=== PATIENT | female | born 1965 | race Caucasian/White ===

== ENCOUNTER 2017-03-03 21:03 | Emergency (ER) | payer BC ==
[2017-03-03 21:58] VITALS: BP 113/70; PULSE 82; TEMP 97.9; BMI 23.9
[2017-03-03] MEDS ORDERED: DIPHTH,PERTUSS(ACELL),TET 0.5 ML DISP.SYRIN IM ONE (21:58)
--- NOTE | 2017-03-03 21:58 | PDOC ---
Rapid Medical Evaluation Chief Complaint: Bite Time Seen by Provider: 03/03/17 21:55 Medical Evaluation: 03/03/17 21:56 The patient presents with a chief complaint of: Dog bite, domesticated, her dog. UTD in vaccinations. I have performed a brief in-person evaluation of this patient. Pertinent physical exam findings: vss, Edema and multiple abrasions to the elft forearm. anterior puncture wound with surrounding edema. I have ordered the following: Boostrix. Xray left forearm. The patient will proceed to the ED for further evaluation. Discharge Disposition - Diagnosis Dog bite Qualifiers: Encounter type: initial encounter Qualified Code(s): W54.0XXA - Bitten by dog, initial encounter - Referrals - Patient Instructions - Post Discharge Activity
--- NOTE | 2017-03-03 22:50 | PDOC ---
History of Present Illness - General Chief Complaint: Bite Stated Complaint: DOG BITE Time Seen by Provider: 03/03/17 21:55 History Source: Patient Exam Limitations: No Limitations - History of Present Illness Initial Comments: 03/03/17 22:41 51-year-old female with no medical history presents to the emergency department complaining of a puncture wound and superficial abrasions to her left mid forearm. Patient states her fully rabies vaccinated dog was playing with her bird when it bit her forearm she was them. Patient states pain is described as 4/10 dull nonradiating intermittent discomfort which is exacerbated on touch and alleviated at rest. Patient denies fever, chills, nausea/vomiting, ext numbness or tingling sensation. Unknown last tetanus. NO KNOWN DRUG ALLERGIES. Timing/Duration: reports: just prior to arrival Past History - Past Medical History Allergies/Adverse Reactions: Allergies Allergy/AdvReac Type Severity Reaction Status Date / Time No Known Allergies Allergy Verified 03/03/17 21:58 Home Medications: Ambulatory Orders Levothyroxine [Synthroid -] 88 mcg PO DAILY 03/03/17 COPD: No - Suicide/Smoking/Psychosocial Hx Smoking History: Never smoked Have you smoked in the past 12 months: No Information on smoking cessation initiated: No Hx Alcohol Use: No Drug/Substance Use Hx: No Substance Use Type: None Review of Systems - Review of Systems Able to Perform ROS?: Yes Comments:: 03/03/17 22:50 CONSTITUTIONAL: Absent: fever, chills, diaphoresis, generalized weakness, malaise, loss of appetite HEENT: Absent: rhinorrhea, nasal congestion, throat pain, throat swelling, difficulty swallowing, mouth swelling, ear pain, eye pain, visual Changes CARDIOVASCULAR: Absent: chest pain, loss of consciousness, palpitations, irregular heart rate, peripheral edema RESPIRATORY: Absent: cough, shortness of breath, dyspnea with exertion, orthopnea, wheezing, stridor, hemoptysis GASTROINTESTINAL: Absent: abdominal pain, abdominal distension, nausea, vomiting, diarrhea, constipation, melena, hematochezia GENITOURINARY: Absent: dysuria, frequency, urgency, hesitancy, hematuria, flank pain, genital pain MUSCULOSKELETAL: Absent: myalgia, arthralgia, joint swelling SKIN: Absent: rash, itching, pallor HEMATOLOGIC/IMMUNOLOGIC: Absent: easy bleeding, easy bruising, lymphadenopathy, frequent infections ENDOCRINE: Absent: unexplained weight gain, unexplained weight loss, heat intolerance, cold intolerance NEUROLOGIC: Absent: headache, focal weakness or paresthesias, dizziness, unsteady gait, seizure, mental status changes, bladder or bowel incontinence PSYCHIATRIC: Absent: anxiety, depression, suicidal or homicidal ideation, hallucinations. Is the patient limited Georgian proficient: No *Physical Exam - Vital Signs Last Vital Signs Temp Pulse Resp BP Pulse Ox 97.9 F 82 18 113/70 100 03/03/17 21:55 03/03/17 21:55 03/03/17 21:55 03/03/17 21:55 03/03/17 21:55 - Physical Exam Comments: 03/03/17 22:50 GENERAL: Well developed, well nourished. Awake and alert. No acute distress. HEENT: Normocephalic, atraumatic. PERRLA, EOMI. No conjunctival pallor. Sclera are non- icteric. Moist mucous membranes. Oropharynx is clear. NECK: Supple. Full ROM. No JVD. Carotid pulses 2+ and symmetric, without bruits. No thyromegaly. No lymphadenopathy. CARDIOVASCULAR: Regular rate and rhythm. No murmurs, rubs, or gallops. Distal pulses are 2+ and symmetric. PULMONARY: No evidence of respiratory distress. Lungs clear to auscultation bilaterally. No wheezing, rales or rhonchi. ABDOMINAL: Soft. Non-tender. Non-distended. No rebound or guarding. No organomegaly. Normoactive bowel sounds. MUSCULOSKELETAL Normal range of motion at all joints. No bony deformities or tenderness. No CVA tenderness. EXTREMITIES: No cyanosis. No clubbing. No edema. No calf tenderness. SKIN: Warm and dry. Normal capillary refill. No rashes. No jaundice. NEUROLOGICAL: Alert, awake, appropriate. Cranial nerves 2-12 intact. No deficits to light touch and temperature in face, upper extremities and lower extremities. No motor deficits in the in face, upper extremities and lower extremities. Normoreflexic in the upper and lower extremities. Normal speech. Toes are down- going bilaterally. Gait is normal without ataxia. PSYCHIATRIC: Cooperative. Good eye contact. Appropriate mood and affect. ED Treatment Course - Medications Given in the ED: ED Medications Discontinued Medications Generic Name Dose Route Start Last Admin Trade Name Freq PRN Reason Stop Dose Admin Diphtheria/Tetanus/Acell Pertussis 0.5 ml 03/03/17 21:58 03/03/17 22:28 Boostrix - IM 03/03/17 21:59 0.5 ml .ONCE ONE Administration Progress Note - Progress Note Progress Note: Left mid posterior forearm 1 puncture wound 1% lidocaine/2 mL Copious normal saline irrigation Superficial abrasions to the lateral proximal left forearm Cleansed with normal saline scrub Medical Decision Making - Medical Decision Making 03/03/17 22:52 51-year-old female with a puncture wound from a dog bite to the left forearm prior to arrival to the emergency department. Patient states it is her dog that bit her and the dog had its full rabies vaccination. Wound was irrigated. Patient also presents with superficial abrasions to the left lateral forearm which is also been cleansed with normal saline. Patient will be placed on Augmentin. Patient was advised to return back to the ER in 2 days for wound check. *DC/Admit/Observation/Transfer Diagnosis at time of Disposition: Dog bite Qualifiers: Encounter type: initial encounter Qualified Code(s): W54.0XXA - Bitten by dog, initial encounter - Discharge Dispostion Disposition: HOME Condition at time of disposition: Stable Admit: No - Referrals Referrals: STAFF,NOT ON [Primary Care Provider] - - Patient Instructions Printed Discharge Instructions: DI for Dog Bite Additional Instructions: Cleanse your puncture and abrasion with soap and water Pat the incision dry with a clean clothe. Cover the incision loosely with a bandaid. Take tylenol/motrin as needed for pain. Follow up with your physician or the ER in 48 hours for a wound check. Return to the ER if you notice red streaks, increase redness/swelling/severe pain to the incision. MYST TAKE YOUR AUGMENTIN UNTIL COMPLETION. - Post Discharge Activity
[2017-03-03] MEDS ORDERED: AMOX TR/POT CLAV 875MG/125MG TABLETS (FP) PO ONE (22:55)
[2017-03-03] MEDS ORDERED: AMOX TR/POT CLAV 875MG/125MG TABLETS (FP) ONE (22:59)
== END 2017-03-03 23:08 | disposition home or self-care (01) ==
LOC: JERFT 21:03
PROC: 3E0234Z Introduction of Serum, Toxoid and Vaccine into Muscle, Percutaneous Approach (ICD-10-PCS; principal; 2017-03-03)
DX: S51.832A Puncture wound without foreign body of left forearm, initial encounter (principal); S50.812A Abrasion of left forearm, initial encounter; W54.0XXA Bitten by dog, initial encounter; Y92.018 Other place in single-family (private) house as the place of occurrence of the external cause; Y99.8 Other external cause status; Y93.K9 Activity, other involving animal care
CPT/HCPCS: 73090-TC-LT; 90715; 99281-25

== ENCOUNTER 2017-03-05 19:39 | Emergency (ER) | payer BC ==
[2017-03-05 20:15] VITALS: BP 108/70; PULSE 82; TEMP 98.7; BMI 23.9
--- NOTE | 2017-03-05 21:54 | PDOC ---
Suture Removal/Wound Check HPI - History of Present Illness Chief Complaint: Wound Stated Complaint: WOUND Time Seen by Provider: 03/05/17 19:53 History Source: Yes: Patient Exam Limitations: Yes: No Limitations Treated at: [facility] ED - Previous ED Treatment Type of procedure performed on last visit: Yes: Other (Bite to left forearm 2 days ago. Was her own dog became agitated as she was taking) Tetanus Immunization: Yes: Up to Date Past History - Travel Traveled outside of the country in the last 30 days: No Close contact w/someone who was outside of country & ill: No - Past Medical History Allergies/Adverse Reactions: Allergies Allergy/AdvReac Type Severity Reaction Status Date / Time No Known Allergies Allergy Verified 03/05/17 20:13 Home Medications: Ambulatory Orders Amoxicillin/Potassium Clav [Augmentin 875-125 Tablet] 1 each PO BID #14 tablet 03/03/17 Levothyroxine [Synthroid -] 88 mcg PO DAILY 03/03/17 COPD: No - Suicide/Smoking/Psychosocial Hx Smoking History: Never smoked Have you smoked in the past 12 months: No Hx Alcohol Use: No Drug/Substance Use Hx: No Substance Use Type: None Suture Removal/Wound Check PE - Physical Exam Laceration/Wound Check Symptoms: reports: None Current Severity Level: None Maximum Severity Level: None Pain Localization: None Comments: 03/05/17 21:52 Well-healed puncture wounds and superficial abrasions to left forearm, with subcutaneous ecchymoses consistent with healing dog bite. No redness, swelling, exudate or purulent drainage noted from any of the [place]. Patient has full range of motion to hand and arm, is continuing Augmentin and wound healing well. *Review of Systems - Review of Systems Able to Perform ROS?: Yes Constitutional: Yes: See HPI. No: Symptoms Reported, Chills, Fever, Malaise HEENTM: Yes: See HPI. No: Symptoms Reported Respiratory: No: See HPI Musculoskeletal: Yes: Symptoms Reported, See HPI, Muscle Pain (mild left forearm ) Integumentary: Yes: Symptoms Reported, See HPI, Bruising Neurological: Yes: See HPI. No: Symptoms reported, Headache, Numbness, Paresthesia All Other Systems: Reviewed and Negative Medical Decision Making - Medical Decision Making 03/05/17 21:53 Wound check dog bite, healing well *DC/Admit/Observation/Transfer Diagnosis at time of Disposition: Visit for wound check - Discharge Dispostion Disposition: HOME Condition at time of disposition: Stable Admit: No - Referrals Referrals: ON STAFF,NOT [Primary Care Provider] - - Patient Instructions Additional Instructions: Continue with Augmentin, - Post Discharge Activity
== END 2017-03-05 21:55 | disposition home or self-care (01) ==
LOC: JERFT 19:39
DX: Z48.00 Encounter for change or removal of nonsurgical wound dressing (principal)
CPT/HCPCS: 99281-25